=== PATIENT | female | born 1970 | race Caucasian/White ===

== ENCOUNTER → 2018-03-11 | Outpatient (CLI) | payer BC ==
[~2018-03-11] MED LIST: DOCU240C67 PO; Ibuprofen PO; PER PO; THYR30TA21 PO; penicillin
--- NOTE | 2018-03-15 09:01 | RADIOLOGY IMAGING REPORT ---
[place] [facility] [place]: KARO MURRAY : [id number] MR: [id number] V: [id number] EXAM DATE: ORDERING PHYSICIAN: ALISON DUGGAN TECHNOLOGIST: Laura Dupree PROCEDURE:BILATERAL DIGITAL SCREENING MAMMOGRAM WITH CAD ASSISTED INTERPRETATION & 3D TOMOSYNTHESIS COMPARISON:Prior mammograms 02/25/15, 01/31/14, 08/02/13, 03/13/13. INDICATIONS:SCREENING FINDINGS: The breasts are heterogeneously dense which can obscure small masses. In the lateral portion of the Right breast on the Right CC view in the posterior 1/3 there is a focal area of increased density for which Spot compression view is recommended. DIAGNOSTIC CATEGORY 0--INCOMPLETE: NEED ADDITIONAL IMAGING EVALUATION. RECOMMENDATIONS: ADDITIONAL MAMMOGRAPHIC VIEWS REQUIRED: RIGHT BREAST. IMPRESSION: BIRADS 0: Incomplete. Additional views of the Right breast recommended. Dictated by: Nayla Butcher M.D. on 03/14/2018 at 10:23 Transcribed by: CAROLINA on 03/14/2018 at 11:47 Approved by: Nayla Butcher M.D. on 03/15/2018 at 9:00 [facility]
== END ==
LOC: MAMO 01:48
PROVIDERS: ATTEND Obstetrics & Gynecology
DX: Z12.31 Encounter for screening mammogram for malignant neoplasm of breast (principal); R92.8 Other abnormal and inconclusive findings on diagnostic imaging of breast
CPT/HCPCS: 77063; 77067

== ENCOUNTER → 2018-04-08 | Outpatient (CLI) | payer BC ==
--- NOTE | 2018-04-14 08:34 | RADIOLOGY IMAGING REPORT ---
FACILITY: [facility] [place] PATIENT NAME: KARO MURRAY : [id number] MR: [id number] V: [id number] EXAM DATE: [id number] ORDERING PHYSICIAN: ALISON DUGGAN TECHNOLOGIST: Laura Dupree PROCEDURE:RIGHT DIGITAL DIAGNOSTIC MAMMOGRAM WITH CAD ASSISTED INTERPRETATION & 3D TOMOSYNTHESIS COMPARISON:Prior mammograms. INDICATIONS:Right breast focal asymmetry. FINDINGS: The Right breast is heterogeneously dense. A focal asymmetry in the lateral Right breast compresses better on additional views. No suspicious masses or calcifications are identified. DIAGNOSTIC CATEGORY 1--NEGATIVE. RECOMMENDATIONS: ROUTINE MAMMOGRAM AND CLINICAL EVALUATION IN 1 YR. IMPRESSION: BIRADS 1: Negative. Dictated by: Jt Balbuena M.D. on 04/08/2018 at 15:28 Transcribed by: CAROLINA on 04/08/2018 at 15:35 Approved by: Nayla Butcher M.D. on 04/14/2018 at 8:33 [facility]
== END ==
LOC: MAMO 01:25
PROVIDERS: ATTEND Obstetrics & Gynecology
DX: N64.89 Other specified disorders of breast (principal)
CPT/HCPCS: 77061; 77065